=== PATIENT | female | born 1985 | race Hispanic/Latino ===

== ENCOUNTER 2019-01-22 09:08 | Emergency (ER) | payer BC, SELFPAY ==
--- OUTSIDE RECORDS SUMMARY | 2019-01-22 09:24 | XMS REPORT ---
:1985 [facility] [address] Awad [address] [place] [id number] Care Team Providers Name Role Phone Unavailable Unavailable Unavailable Problems This patient has no known problems. Allergies, Adverse Reactions, Alerts This patient has no known allergies or adverse reactions. Medications This patient has no known medications.
[2019-01-22 09:44] LABS: Urine Blood 2+ (NEG); Urine Glucose NEGATIVE (NEG); Urine Protein 1+ (NEG)
[2019-01-22] MEDS ORDERED: CEFTRIAXONE 1000 MG/VIAL ONE (10:05)
[2019-01-22] MEDS ORDERED: NA CHLORIDE 0.9% 1,000 ML ONE (10:06)
--- NOTE | 2019-01-22 10:08 | ER ---
Nurse's Notes [facility] Name: Chloe Cabrera Age: 33 yrs Sex: Female : 1985 Arrival Date: 01/22/2019 Time: 09:10 Bed 13 Private MD: Diagnosis: Cystitis, unspecified without hematuria Presentation: 01/22 09:21 Presenting complaint: Patient states: had diarrhea and vomiting last night, this iw morning she felt like her hands were numb, her vision was blurry, body was tingly, got herself in shower and "blacked out" for a few minutes, denies hitting her head or any injury, states she was able to lower herself to ground before blacking out, has had similar episode in past (2017). Also c/o lower abd pain that's been severe for past month. Transition of care: patient was not received from another setting of care. Onset of symptoms was January 22, 2019. Risk Assessment: Do you want to hurt yourself or someone else? Patient reports no desire to harm self or others. Initial Sepsis Screen: Does the patient meet any 2 criteria? No. Patient's initial sepsis screen is negative. Does the patient have a suspected source of infection? No. Patient's initial sepsis screen is negative. Care prior to arrival: None. 09:21 Method Of Arrival: Ambulatory iw 09:21 Acuity: JD 3 iw Triage Assessment: 09:30 General: Appears in no apparent distress. comfortable, Behavior is cooperative, bp appropriate for age, anxious. Pain: Complains of pain in abdomen. EENT: No deficits noted. Neuro: Level of Consciousness is awake, alert, obeys commands, Oriented to person, place, time, situation, Appropriate for age. Cardiovascular: No deficits noted. Respiratory: Airway is patent Respiratory effort is even, unlabored, Respiratory pattern is regular, symmetrical. GI: No signs and/or symptoms were reported involving the gastrointestinal system. Abdomen is non-distended, Bowel sounds present X 4 quads. : No signs and/or symptoms were reported regarding the genitourinary system. Derm: No deficits noted. Musculoskeletal: Circulation, motion, and sensation intact. Range of motion: intact in all extremities. 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 - Social history:: Smoking status: Patient uses tobacco products, denies chronic smoking, but will smoke occasionally, Patient/guardian denies using alcohol, street drugs, The patient lives with family. - Ebola Screening: : Patient negative for fever greater than or equal to 101.5 degrees Fahrenheit, and additional compatible Ebola Virus Disease symptoms Patient denies exposure to infectious person Patient denies travel to an Ebola-affected area in the 21 days before illness onset No symptoms or risks identified at this time. - Family history:: not pertinent. Screenin:30 Abuse screen: Denies threats or abuse. Denies injuries from another. Nutritional bp screening: No deficits noted. Tuberculosis screening: No symptoms or risk factors identified. Fall Risk None identified. Assessment: 09:30 General: SEE TRIAGE NOTE. GI: Abd is soft X 4 quads. bp 10:56 Reassessment: PT D/C HOME AMBULATORY WITH FAMILY, DX WITH CYSTITIS. bp Vital Signs: 09:27 BP 124 / 89; Pulse 95; Resp 16; Temp 98.3(O); Pulse Ox 98% on R/A; Weight 79.38 kg; iw Height 5 ft. 4 in. (162.56 cm); Pain 7/10; 10:00 BP 110 / 65; Pulse 82; Resp 14; Pulse Ox 100% ; bp 10:56 BP 115 / 74; Pulse 78; Resp 14; Temp 98.5; Pulse Ox 99% ; bp 09:27 Body Mass Index 30.04 (79.38 kg, 162.56 cm) ED Course: 09:10 Patient arrived in ED. mr 09:14 Clarence Olmos, RN is Primary Nurse. bp 09:19 Austin Cárdenas MD is Attending Physician. ma2 09:26 Triage completed. iw 09:27 Arm band placed on. iw 09:30 Patient has correct armband on for positive identification. Allergy band placed. Bed in bp low position. Call light in reach. Side rails up X2. 09:45 EKG done, by device repair technician. reviewed by Austin Cárdenas MD. at1 09:58 Inserted saline lock: 20 gauge in right antecubital area, using aseptic technique. bp Blood collected. 10:56 No provider procedures requiring assistance completed. IV discontinued, intact, bp bleeding controlled, No redness/swelling at site. Pressure dressing applied. Administered Medications: 09:57 Drug: NS 0.9% 1000 ml Route: IV; Rate: 1 bolus; Site: right antecubital; bp 10:57 Follow up: IV Status: Completed infusion; IV Intake: 1000ml bp 09:57 Drug: Rocephin 1 grams Route: IV; Rate: calculated rate; Site: right antecubital; bp 10:58 Follow up: IV Status: Completed infusion; IV Intake: 20ml bp 10:00 Drug: TORadol 30 mg Route: IVP; Site: right antecubital; bp 10:58 Follow up: Response: No adverse reaction bp Intake: 10:57 IV: 1000ml; Total: 1000ml. bp 10:58 IV: 20ml; Total: 1020ml. bp Outcome: 10:08 Discharge ordered by MD. rivas 10:57 Discharged to home ambulatory, with family. bp 10:57 Condition: stable 10:57 Discharge instructions given to patient, Instructed on discharge instructions, follow up and referral plans. medication usage, Demonstrated understanding of instructions, follow-up care, medications, Prescriptions given X 3. 10:58 Patient left the ED. bp Signatures: Katlyn Leonard Irene, RN Chloe Cordero, automotive paint technician EKG Tat1 Clarence Olmos RN RN bp Alzahri, Mohammad, MD MD ma2
--- NOTE | 2019-01-22 10:08 | EDPHYS ---
Physician Documentation [facility] Name: Chloe Cabrera Age: 33 yrs Sex: Female : 1985 Arrival Date: 01/22/2019 Time: 09:10 Bed 13 Private MD: ED Physician Austin Cárdenas HPI: 01/22 10:06 This 33 yrs old Female presents to ER via Ambulatory with complaints of Passed ma2 Out Prior To Arrival, Abdominal Pain, Vomiting/Diarrhea. 10:06 associated with suprapubic pain. Onset: The symptoms/episode began/occurred gradually, ma2 1 day(s) ago. Duration: This was a single episode. Associated injury: The patient did not suffer any apparent associated injury. Associated signs and symptoms: Pertinent positives: abdominal pain, diarrhea, Pertinent negatives: combativeness, confusion, diaphoresis, lightheadedness. Current symptoms: Currently, the patient is not experiencing any symptoms. The patient has experienced similar episodes in the past. 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 - Social history:: Smoking status: Patient uses tobacco products, denies chronic smoking, but will smoke occasionally, Patient/guardian denies using alcohol, street drugs, The patient lives with family. - Ebola Screening: : Patient negative for fever greater than or equal to 101.5 degrees Fahrenheit, and additional compatible Ebola Virus Disease symptoms Patient denies exposure to infectious person Patient denies travel to an Ebola-affected area in the 21 days before illness onset No symptoms or risks identified at this time. - Family history:: not pertinent. ROS: 10:06 Constitutional: Negative for fever, chills, and weight loss, Cardiovascular: Negative ma2 for chest pain, palpitations, and edema, Respiratory: Negative for shortness of breath, cough, wheezing, and pleuritic chest pain. 10:06 Abdomen/GI: Positive for abdominal pain, nausea, vomiting, and diarrhea, Negative for anorexia, bowel incontinence, acute changes. 10:06 All other systems are negative. Exam: 10:06 Constitutional: This is a well developed, well nourished patient who is awake, alert, ma2 and in no acute distress. Head/Face: Normocephalic, atraumatic. Eyes: Pupils equal round and reactive to light, extra-ocular motions intact. Lids and lashes normal. Conjunctiva and sclera are non-icteric and not injected. Cornea within normal limits. Periorbital areas with no swelling, redness, or edema. ENT: Nares patent. No nasal discharge, no septal abnormalities noted. Tympanic membranes are normal and external auditory canals are clear. Oropharynx with no redness, swelling, or masses, exudates, or evidence of obstruction, uvula midline. Mucous membranes moist. Chest/axilla: Normal chest wall appearance and motion. Nontender with no deformity. No lesions are appreciated. Cardiovascular: Regular rate and rhythm with a normal S1 and S2. No gallops, murmurs, or rubs. Normal PMI, no JVD. No pulse deficits. Respiratory: Lungs have equal breath sounds bilaterally, clear to auscultation and percussion. No rales, rhonchi or wheezes noted. No increased work of breathing, no retractions or nasal flaring. Abdomen/GI: Soft, non-tender, with normal bowel sounds. No distension or tympany. No guarding or rebound. No evidence of tenderness throughout. Back: No spinal tenderness. No costovertebral tenderness. Full range of motion. Skin: Warm, dry with normal turgor. Normal color with no rashes, no lesions, and no evidence of cellulitis. MS/ Extremity: Pulses equal, no cyanosis. Neurovascular intact. Full, normal range of motion. Neuro: Awake and alert, GCS 15, oriented to person, place, time, and situation. Cranial nerves II-XII grossly intact. Motor strength 5/5 in all extremities. Sensory grossly intact. Cerebellar exam normal. Normal gait. Vital Signs: 09:27 BP 124 / 89; Pulse 95; Resp 16; Temp 98.3(O); Pulse Ox 98% on R/A; Weight 79.38 kg; iw Height 5 ft. 4 in. (162.56 cm); Pain 7/10; 10:00 BP 110 / 65; Pulse 82; Resp 14; Pulse Ox 100% ; bp 10:56 BP 115 / 74; Pulse 78; Resp 14; Temp 98.5; Pulse Ox 99% ; bp 09:27 Body Mass Index 30.04 (79.38 kg, 162.56 cm) iw MDM: 09:19 Patient medically screened. ma2 10:06 Differential Diagnosis: emotional response, vasovagal episode, + UTI. Data reviewed: ma2 vital signs, nurses notes. Response to treatment: the patient's symptoms have markedly improved after treatment. 01/22 09:31 Order name: Urine Dipstick--Ancillary (enter results); Complete Time: 09:47 bd 01/22 09:31 Order name: Urine --Ancillary (enter results); Complete Time: 09:47 bd 01/22 09:35 Order name: EKG; Complete Time: 09:36 bp 01/22 09:19 Order name: Urine Dipstick-Ancillary (obtain specimen); Complete Time: 09:35 ma2 01/22 09:19 Order name: EKG - Nurse/Tech; Complete Time: 09:41 ma2 Administered Medications: 09:57 Drug: NS 0.9% 1000 ml Route: IV; Rate: 1 bolus; Site: right antecubital; bp 10:57 Follow up: IV Status: Completed infusion; IV Intake: 1000ml bp 09:57 Drug: Rocephin 1 grams Route: IV; Rate: calculated rate; Site: right antecubital; bp 10:58 Follow up: IV Status: Completed infusion; IV Intake: 20ml bp 10:00 Drug: TORadol 30 mg Route: IVP; Site: right antecubital; bp 10:58 Follow up: Response: No adverse reaction bp Disposition: 01/22/19 10:08 Discharged to Home. Impression: Cystitis, unspecified without hematuria. - Condition is Stable. - Discharge Instructions: Urinary Tract Infection, Adult. - Prescriptions for Tylenol- Codeine #3 300-30 mg Oral Tablet - take 2 tablet by ORAL route every 6 hours As needed; 30 tablet. Bactrim DS 800- 160 mg Oral Tablet - take 1 tablet by ORAL route every 12 hours for 5 days; 20 tablet. Zofran 4 mg Oral Tablet - take 1 tablet by ORAL route every 12 hours As needed; 20 tablet. - Work release form, Family Work Release, Medication Reconciliation Form, Thank You Letter, Antibiotic Education, Prescription Opioid Use form. - Follow up: Private Physician; When: Tomorrow; Reason: Continuance of care. Signatures: Dispatcher [employer] Risa Crews RN RN iw Peltier, Brian, RN RN bp Alzahri, Mohammad, MD MD ma2 Corrections: (The following items were deleted from the chart) 10:58 10:08 01/22/2019 10:08 Discharged to Home. Impression: Cystitis, unspecified without bp hematuria. Condition is Stable. Forms are Medication Reconciliation Form, Thank You Letter, Antibiotic Education, Prescription Opioid Use. Follow up: Private Physician; When: Tomorrow; Reason: Continuance of care. ma2
[2019-01-22] MEDS ORDERED: KETOROLAC 30 MG/ML INJ ONE (10:16)
[2019-01-22 11:11] VITALS: BP 115/74; TEMP 98.5; O2SAT 99
--- NOTE | 2019-01-22 16:49 | EKG ---
Test Date: 2019-01-22 Test Time: 09:43:09 Hadoop Administrator: DYLAN MEASUREMENT RESULTS: Intervals: Rate: 89 WI: 138 QRSD: 86 QT: 372 QTc: 452 Frederick: P: 58 WI: 138 QRS: 53 T: 44 INTERPRETIVE STATEMENTS: Normal sinus rhythm Normal ECG No previous ECG available for comparison Electronically Signed On 01-22-19 16:48:57 CDT by Ernesto Villavicencio
== END 2019-01-22 10:58 | disposition home or self-care (01) ==
LOC: ER 09:08
DX: N30.90 Cystitis, unspecified without hematuria (principal); Z72.0 Tobacco use
CPT/HCPCS: 81003; 81025; 93005; 96365; 96375; 99284; J7030

== ENCOUNTER 2019-06-29 19:39 | Emergency (ER) | payer SELFPAY ==
[2019-06-29] MEDS ORDERED: ACETAMIN/CAFFEINE/BUTALB TAB PO ONE (23:26)
--- NOTE | 2019-06-29 23:44 | ER ---
Nurse's Notes [facility] Name: Chloe Cabrera Age: 34 yrs Sex: Female : 1985 Arrival Date: 06/29/2019 Time: 19:44 Bed 16 Private MD: Diagnosis: Headache Presentation: 06/29 20:28 Presenting complaint: Patient states: Headache that started yesterday and has gotten aj1 worse over the day today. Reports sensitivity to sound and light. Reports nausea, Denies vomiting. Reports history of migraines, reports that this headache feels different from her previous migraines. Transition of care: patient was not received from another setting of care. Onset of symptoms was June 29, 2019. Risk Assessment: Do you want to hurt yourself or someone else? Patient reports no desire to harm self or others. Initial Sepsis Screen: Does the patient meet any 2 criteria? No. Patient's initial sepsis screen is negative. Does the patient have a suspected source of infection? No. Patient's initial sepsis screen is negative. Care prior to arrival: None. 20:28 Method Of Arrival: Ambulatory [facility] 20:28 Acuity: JD 3 aj1 Triage Assessment: 20:29 Headache History: The patient has had previous headaches and this one is different than aj1 previous episodes. General: Appears in no apparent distress. uncomfortable, Behavior is calm, cooperative, appropriate for age. Pain: Complains of pain in right sikh, left sikh, occipital area and neck Pain currently is 9 out of 10 on a pain scale. Pain began 1 day ago. Also complains of nausea. Neuro: Level of Consciousness is awake, alert, obeys commands, Oriented to person, place, time, situation, Moves all extremities. Full function Gait is steady, Speech is normal, Facial symmetry appears normal, Reports headache photophobia. Cardiovascular: Patient's skin is warm and dry. Respiratory: Airway is patent Respiratory effort is even, unlabored, Respiratory pattern is regular, symmetrical. 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 - Social history:: Smoking status: Patient/guardian denies using tobacco. - Ebola Screening: : Patient denies travel to an Ebola-affected area in the 21 days before illness onset. Screenin:00 Abuse screen: Denies threats or abuse. Nutritional screening: No deficits noted. jb4 Tuberculosis screening: No symptoms or risk factors identified. Fall Risk None identified. Assessment: 22:00 General: Appears in no apparent distress. uncomfortable, Behavior is calm, cooperative. jb4 Pain: Complains of pain in Headache Pain does not radiate. Pain currently is 8 out of 10 on a pain scale. 22:00 Neuro: Level of Consciousness is awake, alert, obeys commands, Oriented to person, jb4 place, time, situation. Cardiovascular: Patient's skin is warm and dry. Respiratory: Airway is patent Respiratory effort is even, unlabored, Respiratory pattern is regular, symmetrical. GI: No deficits noted. No signs and/or symptoms were reported involving the gastrointestinal system. : No deficits noted. No signs and/or symptoms were reported regarding the genitourinary system. EENT: No deficits noted. No signs and/or symptoms were reported regarding the EENT system. Derm: Skin is intact, Skin is pink, warm \T\ dry. Musculoskeletal: Circulation, motion, and sensation intact. Range of motion: intact in all extremities. 23:00 Reassessment: Patient appears in no apparent distress at this time. Patient and/or jb4 family updated on plan of care and expected duration. Pain level reassessed. Patient is alert, oriented x 3, equal unlabored respirations, skin warm/dry/pink. 23:32 Reassessment: Patient appears in no apparent distress at this time. Patient and/or jb4 family updated on plan of care and expected duration. Pain level reassessed. Patient is alert, oriented x 3, equal unlabored respirations, skin warm/dry/pink. PT verbalized understanding of d/c and follow up instructions. Pt ambulated out of ED with steady gait. Vital Signs: 20:29 BP 144 / 99; Pulse 104; Resp 20; Temp 98.2; Pulse Ox 100% on R/A; Weight 73.94 kg (R); aj1 Height 5 ft. 4 in. (162.56 cm) (R); Pain 9/10; 23:00 BP 113 / 71; Pulse 88; Resp 16; Pulse Ox 99% on R/A; jb4 20:29 Body Mass Index 27.98 (73.94 kg, 162.56 cm) aj1 ED Course: 19:44 Patient arrived in ED. ds1 20:29 Triage completed. aj1 20:29 Arm band placed on Patient placed in waiting room, Patient notified of wait time. aj1 21:36 CT Head Brain wo Cont In Process Unspecified. EDMS 21:58 Vlad Hartmann MD is Attending Physician. tw4 22:00 Patient has correct armband on for positive identification. Bed in low position. Call jb4 light in reach. Side rails up X 1. Pulse ox on. NIBP on. 22:03 Kaushik Palomino, RN is Primary Nurse. jb4 23:37 No provider procedures requiring assistance completed. Patient did not have IV access jb4 during this emergency room visit. Administered Medications: 23:31 Not Given (Patient Refused): NS 0.9% 1000 ml IV at 1 bolus Per protocol; 1000 mL bolus jb4 23:31 Not Given (Patient Refused): TORadol 30 mg IVP once jb4 23:31 Not Given (Patient Refused): Zofran 4 mg IVP once; over 2 minutes jb4 23:31 Not Given (Patient Refused): Benadryl 25 mg IVP once jb4 23:31 Drug: Fioricet - Esgic 325 mg-40 mg-50 mg 1 tab-caps Route: PO; jb4 23:31 Follow up: Response: Medication administered at discharge. jb4 Outcome: 23:37 Discharged to home ambulatory, with friend. jb4 23:37 Condition: stable 23:37 Discharge instructions given to patient, friend, Instructed on discharge instructions, follow up and referral plans. medication usage, Demonstrated understanding of instructions, follow-up care, medications, Prescriptions given X 3. 23:44 Discharge ordered by . tw4 23:45 Patient left the ED. jb4 Signatures: Dispatcher [employer] EDLizeth Pickens, AXEL RN aj1 Connie Rankin ds1 Kaushik Palomino, RN RN jb4 Vlad Hartmann MD MD tw4
--- NOTE | 2019-06-29 23:44 | EDPHYS ---
Physician Documentation [facility] Name: Chloe Cabrera Age: 34 yrs Sex: Female : 1985 Arrival Date: 06/29/2019 Time: 19:44 Bed 16 Private MD: ED Physician Vlad Hartmann HPI: 06/30 01:55 This 34 yrs old Female presents to ER via Ambulatory with complaints of tw4 Headache. 01:55 The patient complains of pain to the forehead. The patient describes the headache as tw4 aching. Onset: The symptoms/episode began/occurred today. Associated signs and symptoms: The patient has no apparent associated signs or symptoms. Severity of symptoms: At its worst the pain was mild, in the emergency department the pain is unchanged. The symptoms are alleviated by nothing. the symptoms are aggravated by nothing. The patient has not experienced similar symptoms in the past. CYTOPATHOLOGIST: 06/29 20:29 LMP 06/08/2019 aj1 Historical: - Allergies: 20:29 No Known Allergies; aj1 - Home Meds: 20:29 None [Active]; aj1 - PMHx: 20:29 RA; Seizures; aj1 - Immunization history:: Flu vaccine is not up to date. - Social history:: Smoking status: Patient/guardian denies using tobacco. - Ebola Screening: : Patient denies travel to an Ebola-affected area in the 21 days before illness onset. ROS: 06/30 01:55 Constitutional: Negative for fever, chills, and weight loss, Eyes: Negative for injury, tw4 pain, redness, and discharge, Cardiovascular: Negative for chest pain, palpitations, and edema, Respiratory: Negative for shortness of breath, cough, wheezing, and pleuritic chest pain, Abdomen/GI: Negative for abdominal pain, nausea, vomiting, diarrhea, and constipation, Back: Negative for injury and pain, Skin: Negative for injury, rash, and discoloration. Neuro: Positive for headache, Negative for altered mental status, dizziness, gait disturbance, numbness, seizure activity, speech changes, syncope, near syncope, tingling, tinnitus. Exam: 01:55 Constitutional: This is a well developed, well nourished patient who is awake, alert, tw4 and in no acute distress. Head/Face: Normocephalic, atraumatic. Neck: Trachea midline, no thyromegaly or masses palpated, and no cervical lymphadenopathy. Supple, full range of motion without nuchal rigidity, or vertebral point tenderness. No Meningismus. Chest/axilla: Normal chest wall appearance and motion. Nontender with no deformity. No lesions are appreciated. Cardiovascular: Regular rate and rhythm with a normal S1 and S2. No gallops, murmurs, or rubs. Normal PMI, no JVD. No pulse deficits. Respiratory: Lungs have equal breath sounds bilaterally, clear to auscultation and percussion. No rales, rhonchi or wheezes noted. No increased work of breathing, no retractions or nasal flaring. Abdomen/GI: Soft, non-tender, with normal bowel sounds. No distension or tympany. No guarding or rebound. No evidence of tenderness throughout. Back: No spinal tenderness. No costovertebral tenderness. Full range of motion. MS/ Extremity: Pulses equal, no cyanosis. Neurovascular intact. Full, normal range of motion. Neuro: Awake and alert, GCS 15, oriented to person, place, time, and situation. Cranial nerves II-XII grossly intact. Motor strength 5/5 in all extremities. Sensory grossly intact. Cerebellar exam normal. Normal gait. Vital Signs: 06/29 20:29 BP 144 / 99; Pulse 104; Resp 20; Temp 98.2; Pulse Ox 100% on R/A; Weight 73.94 kg (R); aj1 Height 5 ft. 4 in. (162.56 cm) (R); Pain 9/10; 23:00 BP 113 / 71; Pulse 88; Resp 16; Pulse Ox 99% on R/A; jb4 20:29 Body Mass Index 27.98 (73.94 kg, 162.56 cm) aj1 MDM: 21:58 Patient medically screened. tw4 06/30 01:55 Data reviewed: vital signs, nurses notes. Counseling: I had a detailed discussion with tw4 the patient and/or guardian regarding: the historical points, exam findings, and any diagnostic results supporting the discharge/admit diagnosis. Medication response: fioricet. Response to treatment: and as a result, I will discharge patient. Special discussion: I discussed with the patient/guardian in detail that at this point there is no indication for admission to the hospital. It is understood, however, that if the symptoms persist or worsen the patient needs to return immediately for re-evaluation. 06/29 20:31 Order name: CT Head Brain wo Cont aj1 Administered Medications: 06/29 23:31 Not Given (Patient Refused): NS 0.9% 1000 ml IV at 1 bolus Per protocol; 1000 mL bolus jb4 23:31 Not Given (Patient Refused): TORadol 30 mg IVP once jb4 23:31 Not Given (Patient Refused): Zofran 4 mg IVP once; over 2 minutes jb4 23:31 Not Given (Patient Refused): Benadryl 25 mg IVP once jb4 23:31 Drug: Fioricet - Esgic 325 mg-40 mg-50 mg 1 tab-caps Route: PO; jb4 23:31 Follow up: Response: Medication administered at discharge. jb4 Disposition: 06/29/19 23:44 Discharged to Home. Impression: Headache. - Condition is Stable. - Discharge Instructions: Migraine Headache, Migraine Headache, [id number]. - Prescriptions for Fiorinal 50- 325-40 mg Oral Capsule - take 1 capsule by ORAL route every 4 hours As needed - not to exceed 6 capsules per day; 20 capsule. Imitrex 25 mg Oral Tablet - take 1 tablet by ORAL route one time - x 1 dose with fluids as early as possible after the onset of a migraine attack; if headache returns, the dose may be repeated after 2 hours, not to exceed a total daily dose of 8 tablets;. Zofran 4 mg Oral Tablet - take 1 tablet by ORAL route every 12 hours As needed; 6 tablet. - Medication Reconciliation Form, Thank You Letter, Antibiotic Education, Prescription Opioid Use form. - Follow up: Private Physician; When: Upon discharge from the Emergency Department; Reason: If symptoms return, Recheck today's complaints, Continuance of care. - Problem is new. - Symptoms have improved. Signatures: Dispatcher [employer] EDLizeth Pickens RN RN aj1 Kaushik Palomino RN RN jb4 Vlad Hartmann MD MD tw4 Corrections: (The following items were deleted from the chart) 23:45 23:44 06/29/2019 23:44 Discharged to Home. Impression: Headache. Condition is Stable. jb4 Discharge Instructions: Migraine Headache, Migraine Headache, [id number]. Prescriptions for Fiorinal 50-325-40 mg Oral Capsule - take 1 capsule by ORAL route every 4 hours As needed - not to exceed 6 capsules per day; 20 capsule, Imitrex 25 mg Oral Tablet - take 1 tablet by ORAL route one time - x 1 dose with fluids as early as possible after the onset of a migraine attack; if headache returns, the dose may be repeated after 2 hours, not to exceed a total daily dose of 8 tablets;, Zofran 4 mg Oral Tablet - take 1 tablet by ORAL route every 12 hours As needed; 6 tablet. and Forms are Medication Reconciliation Form, Thank You Letter, Antibiotic Education, Prescription Opioid Use. Follow up: Private Physician; When: Upon discharge from the Emergency Department; Reason: If symptoms return, Recheck today's complaints, Continuance of care. Problem is new. Symptoms have improved. tw4
[2019-06-29 23:49] VITALS: TEMP 98.2
[2019-06-29 23:50] VITALS: BP 113/71; O2SAT 99
--- NOTE | 2019-07-01 13:24 | RAD REPORT ---
EXAM DESCRIPTION: CT - Head Brain Wo Cont - 06/29/2019 9:35 pm CLINICAL HISTORY: The patient is 34 years old and is Female; HEADACHE TECHNIQUE: Axial computed tomography images of the head/brain without intravenous contrast. Sagitt al and coronal reformatted images were created and reviewed. This CT exam was performed using one o r more of the following dose reduction techniques: automated exposure control, adjustment of the mA and/or kV according to patient size, and/or use of iterative reconstruction technique. COMPARISON: No relevant prior studies available. FINDINGS: Brain: Unremarkable. No hemorrhage. No significant white matter disease. No edema. Ventricles: Unremarkable. No ventriculomegaly. Bones/joints: Unremarkable. No acute fracture. Soft tissues: Unremarkable. Sinuses: Unremarkable as visualized. No acute sinusitis. Mastoid air cells: Unremarkable as visualized. No mastoid effusion. IMPRESSION: No acute intracranial findings. Electronically signed by: Masood Anthony MD 06/29/2019 10:05 PM CDT Due to temporary technical issues with the PACS/Fluency reporting system, reports are being signed by the in house radiologist as a courtesy to ensure prompt reporting. The interpreting radiologist is f ully responsible for the content of the report.
== END 2019-06-29 23:45 | disposition home or self-care (01) ==
LOC: ER 19:39
DX: R51 Headache (principal)
CPT/HCPCS: 70450; 99284